=== PATIENT | male | born 1985 | race Caucasian/White ===

== ENCOUNTER 2021-05-05 23:09 | Emergency (ER) | payer OTHER ==
[~2021-05-05] VITALS: Ht 185.4 cm; Wt 83.9 kg
[2021-05-05 23:15] VITALS: BP_SYST 131
--- NOTE | 2021-05-06 01:13 | NUR ---
Patient to ER bed h1 to gown for evaluation. Side rails up. Report given to Stefano DOBSON.
[2021-05-06] MEDS ORDERED: AMPICILLIN SODIUM/SULBACTAM NA 3 GM in NS 100 ML IV ONE (01:30)
[2021-05-06] MEDS ORDERED: AMPICILLIN SODIUM/SULBACTAM NA 3 GM VIAL ONE (01:43)
== END 2021-05-06 02:00 | disposition left against medical advice (07) ==
LOC: SED 23:09
DX: S61.412A Laceration without foreign body of left hand, initial encounter (principal); W26.0XXA Contact with knife, initial encounter; Y93.89 Activity, other specified; Y92.89 Other specified places as the place of occurrence of the external cause; Y99.8 Other external cause status
CPT/HCPCS: 99281; J0295